=== PATIENT | male | born 2000 | race Caucasian/White ===

== ENCOUNTER 2021-10-10 04:04 | Observation (INO) | payer OTHER, SELFPAY ==
--- NOTE | ~2021-10-10 | MR_ITS ---
EXAMINATION: MR MRCP wo/w con/w 3D wo ind DATE: 10/10/2021 13:11 INDICATION: Abdominal pain. Nausea, vomiting, and elevated lipase. TECHNIQUE: Magnetic resonance imaging (MRI) of the abdomen was performed without and with 13 mL Multi Rob intravenous contrast. Sequences included coronal T2-weighted FS FSE, coronal T2-weighted FSE, a xial T1-weighted LAVA, coronal FS FIESTA, axial dual-echo T1-weighted SPGR, coronal lava-FLEX, sagitt al T2-weighted FSE, axial T2-weighted FSE, and axial DWI. Thick-slab T2-weighted FSE images were obta ined for magnetic resonance cholangiopancreatography (MRCP). Maximum intensity projection 3-D reconst ructions of the volumetric data were created by the technologist. Postcontrast sequences included cor onal LAVA-flex and time course of axial T1-weighted LAVA. COMPARISON: CT abdomen and pelvis 10/10/2021, ultrasound 10/10/2021 FINDINGS: ABDOMEN MRI: The liver, gallbladder, spleen, pancreas, adrenal glands, and kidneys are normal. There are no dilated loops of bowel. There are no pathologically enlarged lymph nodes. There is no free int raperitoneal fluid. ABDOMEN MRCP: The common duct is normal and measures 2 mm. IMPRESSION: 1. Normal abdomen. Reviewed, dictated and finalized at location A. IMPRESSION: 1. Normal abdomen.
--- NOTE | ~2021-10-10 | US_ITS ---
US right upper quadrant DATE: 10/10/2021 08:41 INDICATION: Low mid abdominal pain, nausea and vomiting after ingesting alcohol. Elevated lipase. TECHNIQUE: Real-time imaging of liver, pancreas, gallbladder COMPARISON: None FINDINGS: No hepatic or pancreatic space-occupying mass lesion. Normal hepatopedal portal venous flow direction. No gallstones or gallbladder wall thickening or pericholecystic fluid collection. Common bile duct measures 3.4 mm, within normal range. No pancreatic mass lesion is evident. IMPRESSION: No significant abnormality Negative ultrasound and CT examination does not preclude pancreatitis. Recommend clinical correlation . Reviewed, dictated and finalized at [facility]. Reviewed, dictated and finalized at location [facility]. IMPRESSION: No significant abnormality Negative ultrasound and CT examination does not preclude pancreatitis. Recommen d clinical correlation.
--- NOTE | ~2021-10-10 | CT_ITS ---
EXAMINATION: CT abdomen pelvis wo con DATE: 10/10/2021 06:33 INDICATION: Low mid abdominal pain, nausea and vomiting after ingesting alcohol. Elevated serum lipas e. TECHNIQUE: Computed tomography (CT) of the abdomen and pelvis was performed without intravenous contr ast. Automated exposure control and iterative reconstruction technique were employed. Exam dose: 252 .92 mGy-cm total exam DLP. COMPARISON: None. FINDINGS: The lung bases are clear. Right or consolidation. Normal heart size. No pericardial or pleu ral effusion. Liver, spleen, pancreas, adrenal glands and kidneys are unremarkable. The gallbladder is present. No bile duct or pancreatic duct dilatation. No urinary tract calculus or hydroureteronephrosis. The urin femi bladder is unremarkable. No bowel obstruction or intraperitoneal free air. Bilateral L5 pars interarticularis defects with minimal grade 1 anterolisthesis at L5-S1. IMPRESSION: Bilateral L5 pars intra-articular is defects with minimal grade 1 anterolisthesis at L5- S1 Reviewed, dictated and finalized at [facility]. Reviewed, dictated and finalized at location [facility]. IMPRESSION: Bilateral L5 pars intra-articular is defects with minimal grade 1 anterolisthesis at L5-S1
[2021-10-10 04:10] VITALS: BP 145/55; PULSE 86; RESP 18; TEMP 36.4; O2SAT 99
--- NOTE | 2021-10-10 04:22 | ED.NAVMDI ---
HPI - Nausea/Vomiting/Diarrhea General Chief complaint: Nausea/Vomiting/Diarrhea Stated complaint: N/V/D Time Seen by Provider: 10/10/21 04:18 Source: patient History of Present Illness HPI Narrative: Patient presents with nausea and vomiting. Patient reports symptoms started around midnight got progressively worse he is unable to keep anything down is attempted Pedialyte and water without success. Reports this happens after he drinks alcohol and he did drink a little bit tonight. Said symptoms are more severe than his prior episodes. Prior to tonight he was feeling well and denied any abdominal pain vomiting or diarrhea. Denies any recent fevers, cough, congestion denies any known sick contacts recent travel outside the area recent antibiotics. Related Data Home Medications Medication Instructions Recorded Confirmed No Home Medications 10/10/21 10/10/21 Allergies Allergy/AdvReac Type Severity Reaction Status Date / Time No Known Allergies Allergy Verified 10/10/21 04:43 Review of Systems Review of Systems: CONSTITUTIONAL: Denies fever, chills, or sweats. EYES: Denies visual changes, redness, or discharge. ENT: Denies rhinorrhea, congestion, sore throat, or otalgia. CARDIOVASCULAR: Denies chest pain, palpitations, or edema. RESPIRATORY: Denies cough or dyspnea. GASTROINTESTINAL: Reports nausea and vomiting GENITOURINARY: Denies dysuria or hematuria. SKIN: Denies rash or itching. MUSCULOSKELETAL: Denies back pain, joint pain, or myalgia. NEUROLOGIC: Denies headache, numbness, dizziness, or weakness. PSYCHIATRIC: Denies anxiety or depression. All systems reviewed & are unremarkable except as noted in HPI and below Exam Narrative: GENERAL: Well-appearing, well-nourished, and in mild distress due to vomiting HEAD: Normocephalic, atraumatic. EYES: PERRLA and EOMI. ENT: Nares clear, no rhinorrhea or epistaxis. Mucous membranes moist. NECK: Supple. No masses. No JVD ABDOMEN: Soft, nontender, nondistended, normal active bowel sounds. EXTREMITIES: Normal range of motion. No edema. SKIN: Warm, dry, no rash. NEURO: No focal deficits. Alert and oriented x3. PSYCH: Normal mood and affect. Course Reevaluation(s) Reevaluation #1: Patient reports feeling much improved results reviewed with the patient. Patient had elevated lipase he reported he is feeling much improved his repeat abdominal exam was reassuring. Given the atypical presentation of pancreatitis. Lipase was repeated and remained elevated. Patient will be admitted for further evaluation. Patient excepted by hospitalist team. Date: 10/10/21 Time: 07:16 Reevaluation #2: Hospitalist team asked for GI consult Case cussed with GI who will happily follow along. Date: 10/10/21 Time: 07:26 Vital Signs Vital signs: Vital Signs Temperature 36.4 C 10/10/21 04:10 Pulse Rate 86 10/10/21 04:10 Respiratory Rate 18 10/10/21 04:10 Blood Pressure 145/55 H 10/10/21 04:10 Pulse Oximetry 99 10/10/21 04:10 Oxygen Delivery Room Air 10/10/21 04:10 Temperature 36.4 C 10/10/21 04:10 Pulse Rate 63 10/10/21 07:21 Respiratory Rate 18 10/10/21 07:21 Blood Pressure 110/57 L 10/10/21 07:21 Pulse Oximetry 98 10/10/21 07:21 Oxygen Delivery Room Air 10/10/21 04:10 MDM - Nausea/Vomiting/Diarrhea MDM Narrative Medical decision making narrative: Patient returned with nausea vomiting abdominal pain labs obtained. Patient treated supportively. Patient reported symptoms had greatly improved on reevaluation however his lipase was elevated at presentation. Lipase obtained and remained elevated. Primary concern is for pancreatitis. Patient admitted to hospitalist team for further management requested GI consultation which was done. Patient is comfortable with inpatient plan. Lab Data Result diagrams: 10/10/21 04:22 10/10/21 04:47 Labs: Lab Results 10/10/21 10/10/21 10/10/21 Range/Units 04:22 04:47 04:47
[2021-10-10] MEDS: ONDANSETRON INJ 4 MG/2 ML VIAL IV PUSH (04:44)
[2021-10-10] MEDS: SODIUM CHLORIDE 0.9% IV 1,000 ML 999 ML IV CONT (04:50)
[2021-10-10 04:58] LABS: Basophils Percent Auto 0.2 % (0.2-1.2); Hematocrit 43.5 % (42.0-52.0); Hemoglobin 15.8 g/dL (14.0-18.0); Immature Granulocyte Absolute 0.03 K/mm3 (0.00-0.031); Immature Granulocyte Percent A 0.3 % (0-0.5); Lymphocytes Absolute Auto 1.32 K/mm3 (0.9-3.2); Lymphocytes Percent Auto 13.7 % (18.3-44.2); Mean Corpuscular HGB Conc 36.3 g/dl (32-36); Mean Corpuscular Hemoglobin 31.6 pg (26-34); Mean Platelet Volume 11.9 fl (7.4-10.4); Monocytes Absolute Auto 0.7 K/mm3 (0.1-0.6); Monocytes Percent Auto 7.1 % (2.6-8.5); Neutrophils Absolute Auto 7.6 K/mm3 (1.3-6.7); Neutrophils Percent Auto 78.7 % (45.5-73.1); Platelet Count Result 203 k/mm3 (150-375); Red Cell Distribution Width 11.6 % (11.5-14.5); White Blood Count 9.6 K/mm3 (4.5-10.0)
[2021-10-10 05:12] LABS: Appearance Urine Clear (Clear); Bilirubin Urine Negative (Negative); Blood Urine Negative (Negative); Color Urine Yellow (Yellow); Glucose Urine UA Negative (Negative); Ketones Urine 3+ mg/dL (Negative); Leukocyte Esterase Ur Negative LEU/UL (Negative); Nitrate Urine Negative (Negative); Protein Urine 2+ mg/dL (Negative); Specific Grav Ur >= 1.030 (1.001-1.035); Urobilinogen Urine 0.2 mg/dL (<2.0); pH Urine 5.5 (5.0-9.0)
[2021-10-10 05:15] LABS: Bacteria Urine Trace /hpf; Mucus Urine Few /lpf; RBC Urine 0-2 /hpf (0-2)
[2021-10-10 05:16] LABS: Add Urine Microscopic? YES
[2021-10-10 05:25] LABS: Alanine Aminotransferase 47 U/L (6-50); Albumin Level 5.2 g/dL (3.5-5.1); Alkaline Phosphatase 92 U/L (38-126); Anion Gap 16 mmol/L (8-16); Aspartate Amino Transferase 60 U/L (17-59); Bilirubin,Total 0.6 mg/dL (0.2-1.3); Blood Urea Nitrogen 16 mg/dL (9-20); Calcium 9.8 mg/dL (8.4-10.2); Carbon Dioxide 21 mmol/L (22-30); Chloride 105 mmol/L (98-107); Estimated CRCL calculation 117 ml/min; Estimated Glomerular Filt Rate > 60; Glucose 105 mg/dL (65-110); Potassium 4.1 mmol/L (3.4-5.0); Sodium 142 mmol/L (137-145)
[2021-10-10 06:04] LABS: Lipase 13534 U/L (23-300)
[2021-10-10 07:08] LABS: Lipase 14704 U/L (23-300)
[2021-10-10 07:21] VITALS: BP 110/57; PULSE 63; RESP 18; O2SAT 98
[2021-10-10 08:14] LABS: Thyroid Stimulating Hormone Reflex 0.471 uIU/mL (0.465-4.68)
[2021-10-10 09:35] VITALS: BMI 20.5
[2021-10-10] MEDS: LACTATED RINGERS 1,000 ML 125 ML IV CONT ×2 (09:50→17:50)
[2021-10-10 10:17] VITALS: BP 135/60; PULSE 76; RESP 18; TEMP 37.4; O2SAT 100
--- NOTE | 2021-10-10 10:21 | ADMGEN ---
This patient, Pablo Rapp, was admitted to 3 Med Surg Room 327-01 at 0925 by wheelchair. Report per EMILY Gee. Patient/family oriented to hospital policies and general routines including ID bracelet, bed and alarms, visiting hours, pain management, procedures, bathroom and other care routines, personal items, smoking policy, room service/diet, and visiting hours. Information on how to activate the Rapid Response Team has been discussed. Patient/Family are encouraged to report perceived risks to care and to ask questions if they do not understand what they are told or what they should do.
--- NOTE | 2021-10-10 10:41 | WPDGICN ---
GI Consult Note Consult date/time: 10/10/21 10:41 Reason for consult: Abdominal pain, nausea, vomiting and elevated lipase. HPI: Pablo Rapp is a 21 year old male was seen in consultation request the hospitalist with the patient's permission. Patient was examined and chart was reviewed. Impression: Nausea, vomiting, abdominal pain and elevated lipase. Pancreatitis? . Cannabis abuse. Recommendation: Will begin clear liquids. Advance as tolerated. Recheck laboratory studies in a.m.. Will check ILSA, IgG4. Check triglyceride level. MRCP/MRI of the pancreas. Patient has been counseled about discontinuing alcohol and cannabis. Will place on Protonix. Continue IV fluids. May require outpatient EUS. History: This very pleasant gentleman presented to the ED with complaints of nausea, vomiting abdominal pain. The evening prior to admission the patient had been drinking couple of beers and 2 or 3 mixed drinks. He then subsequently developed nausea, vomiting and abdominal pain. Presented to the ED. The ED revealed an elevated lipase of over 14,000. Remainder of the blood work was unremarkable. CT imaging was obtained. The initial report revealed questionable inflammatory changes of the pancreas. However, final report did not reveal this. Final CT imaging revealed: IMPRESSION:? 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 No elevated triglycerides. No family history of pancreatitis is reported. Patient recently reported episodes of hives about 2 or 3 weeks ago. These were self-limited. He does have a history recurrent nausea, vomiting and abdominal pain after alcohol intake. He will usually awaken from sleep with symptoms. The symptoms may last up to 6 hours or so. This episode of nausea, vomiting abdominal pain was worse than his usual episodes. He does admit to smoking marijuana on a daily basis. Patient has been drinking since age 15 and smoking marijuana since age 14 or 15. NSAID use tonight. He denies any fever, chills, night sweats or weight loss. He denies any scleral icterus, jaundice or bilirubinuria. Indigestion, heartburn, dysphagia, odynophagia, constipation, hematochezia, melena or acholic stools are denied. He does have episodes of diarrhea at times after alcohol intake. Patient has never had an EGD or colonoscopy. No family history GI malignancies is noted. Fourteen point review systems unremarkable except for that mentioned above. General: very pleasant patient in no acute distress. HEENT: Head was normocephalic sclerae is clear mouth without masses neck was supple. Heart: Rate rhythm regular without S3 or S4. Lungs: CTA. Abdomen: Soft with no guarding or rigidity. Bowel sounds were active. Neurologic: Cranial nerves 2 through 12 intact. No focal defects. No clonus. Musculoskeletal system: Revealed no joint tenderness or swelling no muscle atrophy. Extremities: Reveal no significant edema. Skin: Warm and dry with normal turgor. Mental status: intact. Patient is alert and oriented. [facility] Past Medical History Medical History Concussion Marijuana use Family History Family History (Updated 10/10/21 @ 10:34 by Sharif Hurd DO) Other Celiac disease Diabetes mellitus Thyroid condition Social History Social History (Updated 10/10/21 @ 10:35 by Sharif Hurd DO) Smoking status: Never smoker Alcohol intake: current Substance use: current Substance use type: marijuana Other substance usage details: daily marijuana use; drinks socially Spiritual care concerns: No Meds Home Medications and Allergies Home Medications Medication Instructions Recorded Confirmed Type No Home Medications 10/10/21 10/10/21 History Allergies Allergy/AdvReac Type Severity Reactio
[2021-10-10 11:05] LABS: Cholesterol 148 mg/dL (0-200); HDL Direct 41 mg/dL; Triglycerides 58 mg/dL (<150)
[2021-10-10 11:10] LABS: Anion Gap 8 mmol/L (8-16); Blood Urea Nitrogen 14 mg/dL (9-20); CRP 0.6 mg/dL (<1.0); Calcium 8.9 mg/dL (8.4-10.2); Carbon Dioxide 26 mmol/L (22-30); Chloride 106 mmol/L (98-107); Estimated CRCL calculation 111 ml/min; Estimated Glomerular Filt Rate > 60; Glucose 93 mg/dL (65-110); Potassium 4.2 mmol/L (3.4-5.0); Sodium 140 mmol/L (137-145)
[2021-10-10 11:15] LABS: Alanine Aminotransferase 41 U/L (6-50); Albumin Level 4.5 g/dL (3.5-5.1); Alkaline Phosphatase 69 U/L (38-126); Aspartate Amino Transferase 42 U/L (17-59); Bilirubin,Total 0.7 mg/dL (0.2-1.3)
[2021-10-10 11:16] LABS: LDL Cholesterol Direct 78 mg/dL
[2021-10-10 11:31] LABS: Lipase 6132 U/L (23-300)
--- NOTE | 2021-10-10 13:11 | PM.IMHP ---
H&P: HPI History of Present Illness Date/Time: 10/10/21 13:11 Chief Complaint: Abdominal pain Narrative: 21 years old male was admitted to the emergency room with complaints of having nausea, vomiting abdominal pain and inability to keep food down since last night According to the patient he had few drinks at night and started feeling nauseous close to midnight. He tried to drink Pedialyte and take some medications an outpatient the nausea continued and later he also started having vomiting abdominal cramps. Abdominal pain is mid epigastric sharp and shooting to the lower back area. No exacerbating or relieving factors. In the emergency room patient was given IV fluids and patient started feeling slightly better. At present on fluid patient has no nausea or vomiting but is still have mild epigastric discomfort. Review of Systems Review of Systems: All systems reviewed & are unremarkable except as noted in HPI and below (The history the history and physical examination.) [facility] Past Medical History Medical History Concussion Marijuana use Family History Family History Other Celiac disease Diabetes mellitus Thyroid condition Social History Social History Smoking status: Never smoker Alcohol intake: current Substance use: current Substance use type: marijuana Other substance usage details: daily marijuana use; drinks socially Spiritual care concerns: No Meds Home Medications and Allergies Home Medications Medication Instructions Recorded Confirmed Type No Home Medications 10/10/21 10/10/21 History Allergies Allergy/AdvReac Type Severity Reaction Status Date / Time No Known Allergies Allergy Verified 10/10/21 04:43 Vital Signs Vital Signs - 24 hr 10/10/21 04:10 10/10/21 07:21 10/10/21 10:17 Temperature 36.4 C 37.4 C Pulse Rate 86 63 76 Respiratory Rate 18 18 18 Blood Pressure 145/55 H 110/57 L 135/60 Pulse Oximetry 99 98 100 Oxygen Delivery Room Air 10/10/21 10:58 Temperature Pulse Rate Respiratory Rate Blood Pressure Pulse Oximetry Oxygen Delivery Room Air Exam Narrative: GENERAL: Well-appearing, well-nourished, and in mild distress due to vomiting HEAD: Normocephalic, atraumatic. EYES: PERRLA and EOMI. ENT: Nares clear, no rhinorrhea or epistaxis.? Mucous membranes moist.? NECK: Supple.? No masses.? No JVD ABDOMEN: Soft, mild epigastric tenderness, nondistended, normal active bowel sounds. EXTREMITIES: Normal range of motion.? No edema. SKIN: Warm, dry, no rash. NEURO: No focal deficits.? Alert and oriented x3. PSYCH: Normal mood and affect. H&P: Results Labs Labs: Short CBC 10/10/21 Range/Units 04:22 WBC 9.6 (4.5-10.0) K/mm3 Hgb 15.8 (14.0-18.0) g/dL Hct 43.5 (42.0-52.0) % Plt Count 203 (150-375) k/mm3 BMP 10/10/21 10/10/21 04:47 10:49 Sodium 142 140 Potassium 4.1 4.2 Chloride 105 106 Carbon Dioxide 21 L 26 BUN 16 14 Creatinine 0.90 0.90 Glucose 105 93 Calcium 9.8 8.9 Liver Function 10/10/21 10/10/21 Range/Units 04:47 10:47 Total Bilirubin 0.6 0.7 (0.2-1.3) mg/dL Direct Bilirubin 0.0 (0-0.3) mg/dL AST 60 H 42 (17-59) U/L ALT 47 41 (6-50) U/L Alkaline Phosphatase 92 69 (38-126) U/L Albumin 5.2 H 4.5 (3.5-5.1) g/dL Urine 10/10/21 Range/Units 04:47 Urine Color Yellow (Yellow) Urine Appearance Clear (Clear) Urine pH 5.5 (5.0-9.0) Ur Specific [place] >= 1.030 (1.001-1.035) Urine Protein 2+ H (Negative) mg/dL Urine Glucose (UA) Negative (Negative) mg/dL Assessment and Plan Assessment and plan (1) Acute pancreatitis: Code(s): K85.90 - Acute pancreatitis without necrosis or infection, unspecified Status: Acute Assessment and Plan: N. p.o, Start IV fluids Monitor electrolytes and CBC (2) Nausea & vomi
[2021-10-10 14:00] VITALS: BP 128/57; PULSE 67; RESP 16; TEMP 37.1; O2SAT 99
[2021-10-10 22:00] VITALS: BP 110/85; PULSE 65; RESP 16; TEMP 37.4; O2SAT 99
[2021-10-11] MEDS: LACTATED RINGERS 1,000 ML 125 ML IV CONT ×2 (03:05→11:18)
[2021-10-11 05:57] LABS: Hematocrit 43.5 % (42.0-52.0); Hemoglobin 14.8 g/dL (14.0-18.0); Mean Corpuscular Hemoglobin 31.3 pg (26-34); Mean Platelet Volume 11.6 fl (7.4-10.4); Platelet Count Result 201 k/mm3 (150-375); Red Blood Count 4.73 M/mm3 (4.6-6.20); Red Cell Distribution Width 12.1 % (11.5-14.5); White Blood Count 7.4 K/mm3 (4.5-10.0)
[2021-10-11 06:00] VITALS: BP 128/58; PULSE 64; RESP 15; TEMP 36.2; O2SAT 97
[2021-10-11 06:12] LABS: Alanine Aminotransferase 37 U/L (6-50); Albumin Level 4.3 g/dL (3.5-5.1); Alkaline Phosphatase 72 U/L (38-126); Amylase 414 U/L (30-110); Anion Gap 5 mmol/L (8-16); Aspartate Amino Transferase 37 U/L (17-59); Blood Urea Nitrogen 11 mg/dL (9-20); Calcium 8.9 mg/dL (8.4-10.2); Carbon Dioxide 30 mmol/L (22-30); Chloride 103 mmol/L (98-107); Estimated CRCL calculation 111 ml/min; Estimated Glomerular Filt Rate > 60; Glucose 99 mg/dL (65-110); Potassium 3.7 mmol/L (3.4-5.0); Sodium 138 mmol/L (137-145)
[2021-10-11 06:32] LABS: Lipase 4125 U/L (23-300)
[2021-10-11] MEDS: PANTOPRAZOLE 40 MG TABLET PO (08:22)
--- NOTE | 2021-10-11 09:22 | WPDGIPROGNO ---
Subjective Date/time seen: 10/11/21 09:22 This very pleasant gentleman is feeling well. No nausea, vomiting or hematemesis. No further abdominal pain. Is hungry and wants to go home. Vital signs stable. Heart rate rhythm regular. Lungs CTA. Abdomen is soft without tenderness. Bowel sounds active. MRCP and multiple labs pending. Impression: Nausea, vomiting, abdominal pain and elevated lipase.? Pancreatitis? . Cannabis abuse. Recommendation: Low-fat diet. Continue PPI. May be discharged later today if diarrhea tolerated. Follow-up with [facility] as an outpatient. We need outpatient EUS. Multiple labs still pending. Objective Data Vital Signs Vital Signs: Vital Signs - 24 hr 10/10/21 10:17 10/10/21 10:58 10/10/21 14:00 Temperature 37.4 C 37.1 C Pulse Rate 76 67 Respiratory Rate 18 16 Blood Pressure 135/60 128/57 L Pulse Oximetry 100 99 Oxygen Delivery Room Air 10/10/21 22:00 10/10/21 20:00 10/11/21 06:00 Temperature 37.4 C 36.2 C L Pulse Rate 65 64 Respiratory Rate 16 15 Blood Pressure 110/85 128/58 L Pulse Oximetry 99 97 Oxygen Delivery Room Air Intake/Output Intake/Output: Intake & Output 10/08/21 10/09/21 10/10/21 10/11/21 23:59 23:59 23:59 23:59 Intake Total 2550 1150 Balance 2550 1150 Meds/Results Medications: Active Medications Generic Name Dose Route Start Last Admin Trade Name Freq PRN Reason Stop Dose Admin Lactated Ringer's 1,000 mls @ 125 mls/hr 10/10/21 07:30 10/11/21 03:05 Lr - Lactated Ringers Iv IV CONT 125 mls/hr .Q8H VARUN Administration Ondansetron HCl 4 mg 10/10/21 07:28 Ondansetron Inj 4 Mg/2 Ml Vial IV PUSH Q4H PRN Nausea Pantoprazole Sodium 40 mg 10/11/21 09:00 10/11/21 08:22 Pantoprazole 40 Mg Tablet PO 40 mg QAM VARUN Administration Radiology Results: ITS Impressions Abdomen/Pelvis CT 10/10/21 09:35 IMPRESSION: Bilateral L5 pars intra-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 Recommend clinical correlation. Labs Labs: Laboratory Results - last 24 hr 10/10/21 10/10/21 10/10/21 10:47 10:49 10:49 WBC RBC Hgb Hct MCV MCH MCHC RDW Plt Count MPV Sodium 140 Potassium 4.2 Chloride 106 Carbon Dioxide 26 Anion Gap 8 BUN 14 Creatinine 0.90 Estim Creat Clear Calc 111 Estimated GFR > 60 Glucose 93 Calcium 8.9 Total Bilirubin 0.7 Direct Bilirubin 0.0 AST 42 ALT 41 Alkaline Phosphatase 69 C-Reactive Protein 0.6 Total Protein 8.0 Albumin 4.5 Triglycerides 58 Cholesterol 148 LDL Cholesterol Direct 78 HDL Direct 41 Amylase Lipase 6132 H 10/11/21 10/11/21 05:42 05:42 WBC 7.4 RBC 4.73 Hgb 14.8 Hct 43.5 MCV 92.0 D MCH 31.3 MCHC 34.0 RDW 12.1 Plt Count 201 MPV 11.6 H Sodium 138 Potassium 3.7 Chloride 103 Carbon Dioxide 30 Anion Gap 5 L BUN 11 Creatinine 0.90 Estim Creat Clear Calc 111 Estimated GFR > 60 Glucose 99 Calcium 8.9 Total Bilirubin 1.0 Direct Bilirubin AST 37 ALT 37 Alkaline Phosphatase 72 C-Reactive Protein Total Protein 7.0 Albumin 4.3 Triglycerides Cholesterol LDL Cholesterol Direct HDL Direct Amylase 414 H Lipase 4125 H
--- NOTE | 2021-10-11 09:30 | PM.IMPN ---
Progress Note: A&P Assessment and Plan (1) Acute pancreatitis: Code(s): K85.90 - Acute pancreatitis without necrosis or infection, unspecified Status: Acute Assessment and Plan: N. p.o, Start IV fluids Monitor electrolytes and CBC (2) Nausea & vomiting: Code(s): R11.2 - Nausea with vomiting, unspecified Status: Acute Assessment and Plan: Treated with medication as needed Additional Plan 10/11/2021 Patient is clinically better. Enzymes are also trending down. Patient is full code. Patient is a full admission Further evaluation and treatment will be done current lab data available and recommendation by the specialist Subjective Date/time seen: 10/11/21 09:30 Patient was seen during the morning rounds today. Patient is feeling slightly better. Patient abdominal pain is better. No nausea or vomiting. No chest pain. No shortness of breath. Mood stable. Review of Systems Review of Systems: All systems reviewed & are unremarkable except as noted in HPI and below (The history the history and physical examination.) Exam Narrative: GENERAL: Well-appearing, well-nourished, and in mild distress due to vomiting HEAD: Normocephalic, atraumatic. EYES: PERRLA and EOMI. ENT: Nares clear, no rhinorrhea or epistaxis.? Mucous membranes moist.? NECK: Supple.? No masses.? No JVD ABDOMEN: Soft, mild epigastric tenderness, nondistended, normal active bowel sounds. EXTREMITIES: Normal range of motion.? No edema. SKIN: Warm, dry, no rash. NEURO: No focal deficits.? Alert and oriented x3. PSYCH: Normal mood and affect. Objective Data Vital Signs Vital Signs: Vital Signs - 24 hr 10/10/21 10:17 10/10/21 10:58 10/10/21 14:00 Temperature 37.4 C 37.1 C Pulse Rate 76 67 Respiratory Rate 18 16 Blood Pressure 135/60 128/57 L Pulse Oximetry 100 99 Oxygen Delivery Room Air 10/10/21 22:00 10/10/21 20:00 10/11/21 06:00 Temperature 37.4 C 36.2 C L Pulse Rate 65 64 Respiratory Rate 16 15 Blood Pressure 110/85 128/58 L Pulse Oximetry 99 97 Oxygen Delivery Room Air Intake/Output Intake/Output: Intake & Output 10/08/21 10/09/21 10/10/2110/11/22 23:59 23:59 23:59 23:59 Intake Total 2550 1150 Balance 2550 1150 Meds/Results Medications: Active Medications Generic Name Dose Route Start Last Admin Trade Name Radha PRN Reason Stop Dose Admin Lactated Ringer's 1,000 mls @ 125 mls/hr 10/10/21 07:30 10/11/21 03:05 Lr - Lactated Ringers Iv IV CONT 125 mls/hr .Q8H VARUN Administration Ondansetron HCl 4 mg 10/10/21 07:28 Ondansetron Inj 4 Mg/2 Ml Vial IV PUSH Q4H PRN Nausea Pantoprazole Sodium 40 mg 10/11/21 09:00 10/11/21 08:22 Pantoprazole 40 Mg Tablet PO 40 mg QAM VARUN Administration Radiology Results: ITS Impressions Abdomen/Pelvis CT 10/10/21 09:35 IMPRESSION: Bilateral L5 pars intra-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 Recommend clinical correlation. Labs Labs: Laboratory Results - last 24 hr 10/10/21 10/10/21 10/10/21 10:47 10:49 10:49 WBC RBC Hgb Hct MCV MCH MCHC RDW Plt Count MPV Sodium 140 Potassium 4.2 Chloride 106 Carbon Dioxide 26 Anion Gap 8 BUN 14 Creatinine 0.90 Estim Creat Clear Calc 111 Estimated GFR > 60 Glucose 93 Calcium 8.9 Total Bilirubin 0.7 Direct Bilirubin 0.0 AST 42 ALT 41 Alkaline Phosphatase 69 C-Reactive Protein 0.6 Total Protein 8.0 Albumin 4.5 Triglycerides 58 Cholesterol 148 LDL Cholesterol Direct 78 HDL Direct 41 Amylase Lipase 6132 H 10/11/21 10/11/21 05:42 05:42 WBC 7.4 RBC 4.73 Hgb 14.8 Hct 43.5 MCV 92.0 D MCH 31.3
[2021-10-11 14:00] VITALS: BP 124/61; PULSE 69; RESP 16; TEMP 37; O2SAT 100
[2021-10-11 14:41] VITALS: O2SAT 100
--- NOTE | 2021-10-11 14:42 | PM.DS ---
DS: Admitting Diagnosis Discharge Date 10/11/2021 Admitting Diagnosis Acute Pancreatitis DS: Discharge Diagnosis Discharge Diagnosis (1) Acute pancreatitis: Code(s): K85.90 - Acute pancreatitis without necrosis or infection, unspecified Status: Acute Assessment and Plan: N. p.o, Start IV fluids Monitor electrolytes and CBC (2) Nausea & vomiting: Code(s): R11.2 - Nausea with vomiting, unspecified Status: Acute Assessment and Plan: Treated with medication as needed DS: Summary Hospital Course Reason for hospitalization: Acute pancreatitis Hospital Course: 21 years old male was admitted with abdominal pain. Patient was found to have acute pancreatitis. Patient was kept NPO and given IV fluids. Gastroenterology was consulted. Patient continued to improve without any significant intervention. Today patient is feeling better, patient was discharged home stable condition. Time Spent with Patient Time attestation: Total time spent providing and/or coordinating discharge services: Time spent: Less than 30 minutes Exam Narrative: GENERAL: Well-appearing, well-nourished, and in mild distress due to vomiting HEAD: Normocephalic, atraumatic. EYES: PERRLA and EOMI. ENT: Nares clear, no rhinorrhea or epistaxis.? Mucous membranes moist.? NECK: Supple.? No masses.? No JVD ABDOMEN: Soft, mild epigastric tenderness, nondistended, normal active bowel sounds. EXTREMITIES: Normal range of motion.? No edema. SKIN: Warm, dry, no rash. NEURO: No focal deficits.? Alert and oriented x3. PSYCH: Normal mood and affect. DS: Data Data Completed and Pending Labs on day of discharge: Labs from last 24 hours 10/11/21 10/11/21 05:42 05:42 WBC 7.4 RBC 4.73 Hgb 14.8 Hct 43.5 MCV 92.0 D MCH 31.3 MCHC 34.0 RDW 12.1 Plt Count 201 MPV 11.6 H Sodium 138 Potassium 3.7 Chloride 103 Carbon Dioxide 30 Anion Gap 5 L BUN 11 Creatinine 0.90 Estim Creat Clear Calc 111 Estimated GFR > 60 Glucose 99 Calcium 8.9 Total Bilirubin 1.0 AST 37 ALT 37 Alkaline Phosphatase 72 Total Protein 7.0 Albumin 4.3 Amylase 414 H Lipase 4125 H Discharge Plan Discharge Attending physician on discharge: Chintan Lares Consulting providers: Shairf Hurd Discharging Clinician: Chintan Lares Patient Disposition: Home, Self-Care Activity: as tolerated Diet: as tolerated Patient Instructions: Antibiotic Form Stand Alone Forms: General Discharge Information Follow-up/Referrals: Sharif Hurd DO [Physician] - Discharge Medications: No Action No Home Medications Date of admission: 10/10/21 07:28 Primary Care Provider: PHYSICIAN NOT ON STAFF,NONSTAFF Admitting Provider: Chintan Lares Attending physician on admission: Chintan Lares Condition: Stable Quality VTE Prophylaxis VTE prophylaxis: mechanical ordered
[2021-10-12 16:54] LABS: Immunoglobulin G, Serum 980 mg/dL (600-1640); Immunoglobulin G1 502 mg/dL (382-929); Immunoglobulin G2 312 mg/dL (241-700); Immunoglobulin G3 57 mg/dL (22-178); Immunoglobulin G4 101.7 mg/dL (4.0-86.0)
[2021-11-19 08:40] LABS: Gliadin AB, IgG <1.0 U/mL (<15.0); TTG IGA AB <1.0 U/mL (<15.0)
== END 2021-10-11 15:30 | disposition home or self-care (01) ==
LOC: ANHED 07:28 → ANH3MEDSUR 08:32
PROVIDERS: Internal Medicine Gastroenterology; Admitting Provider Internal Medicine; Emergency Provider Emergency Medicine; Visit Provider Internal Medicine
DX: K85.90 Acute pancreatitis without necrosis or infection, unspecified (principal); R11.2 Nausea with vomiting, unspecified; F12.10 Cannabis abuse, uncomplicated
CPT/HCPCS: 36415; 74176; 74183; 76376; 76705; 80048; 80053; 80061; 80076; 81001; 82150; 82784; 82787; 83516; 83690; 84443; 85025; 85027; 86038; 86140; 86255; 96360; 96361; 96374; 99285; A9270; A9577; G0378; G0379; J2405; J7030; J7120